=== PATIENT | female | born 1950 | race Caucasian/White ===

== ENCOUNTER 2017-09-30 12:27 | Outpatient (CLI) | payer OTHER | END 2017-09-30 14:34 | disposition home or self-care (01) | LOC: RAD 12:27 | DX: J40 Bronchitis, not specified as acute or chronic (principal) ==

== ENCOUNTER → 2017-09-30 | Outpatient (CLI) | payer OTHER | END | disposition home or self-care (01) | LOC: LAB 13:25 | DX: J11.1 Influenza due to unidentified influenza virus with other respiratory manifestations (principal) ==